=== PATIENT | male | born 1995 | race American Indian/Alaskan Native ===

== ENCOUNTER 2018-11-17 12:11 | Emergency (ER) | payer SELFPAY ==
--- NOTE | 2018-11-17 12:39 | Emergency Department Report ---
Blank Doc - Documentation Documentation: This is a 23-year-old male that presents with right lower abdominal pain. Denies any vomiting or nausea. denies any radiation. This initial assessment/diagnostic orders/clinical plan/treatment(s) is/are subject to change based on patient's health status, clinical progression and re- assessment by fellow clinical providers in the ED. Further treatment and workup at subsequent clinical providers discretion. Patient/guardians urged not to elope from the ED as their condition may be serious if not clinically assessed and managed. Initial orders include: 1- Patient sent to [facility] for further evaluation and treatment 2- labs
[2018-11-17 12:40] VITALS: BP 125/54
[2018-11-17] MEDS ORDERED: TORADOL IV ONE (13:09)
[2018-11-17] MEDS ORDERED: TORADOL IM ONE (13:18)
[2018-11-17 13:24] LABS: Basophils % (Auto) 0.4 % (0.0-1.8); Eosinophils % (Auto) 0.6 % (0.0-4.3); Hematocrit 41.7 % (35.5-45.6); Hemoglobin 14.1 gm/dl (11.8-15.2); Lymphocytes # (Auto) 1.5 K/mm3 (1.2-5.4); Lymphocytes % (Auto) 44.4 % (13.4-35.0); Mean Corpuscular HGB Conc 34 % (32-34); Mean Corpuscular Volume 90 fl (84-94); Monocytes # (Auto) 0.3 K/mm3 (0.0-0.8); Monocytes % (Auto) 8.2 % (0.0-7.3); Platelet Count 196 K/mm3 (140-440); Red Blood Count 4.64 M/mm3 (3.65-5.03); Red Cell Distribution Width 13.5 % (13.2-15.2)
[2018-11-17 13:40] LABS: Alanine Aminotransferase 10 units/L (7-56); Albumin 4.3 g/dL (3.9-5); BUN/Creatinine Ratio 6; Blood Urea Nitrogen 5 mg/dL (9-20); Calcium 9.1 mg/dL (8.4-10.2); Hemolysis Index 4
--- NOTE | 2018-11-17 15:43 | Cat Scan Report ---
CT ABDOMEN AND PELVIS WITH CONTRAST HISTORY: RLQ pain. COMPARISON: None. TECHNIQUE: CT images of the abdomen and pelvis were obtained following administration of intravenous contrast. All CT scans at this location are performed using CT dose reduction for ALARA by means of automated exposure control. CONTRAST: 100 ml of intravenous contrast administered. FINDINGS: Lungs/bones: Normal Abdomen/pelvis: The liver, biliary system, pancreas, spleen, kidneys and renal collecting systems, a drenal glands, aorta, bowel loops, appendix and bladder are unremarkable. There is trace free pelvic fluid which is of uncertain significance. No free air or bulky adenopathy. IMPRESSION: Trace free pelvic fluid of uncertain etiology. The appendix is normal. No inflammatory process in the right lower quadrant is identified. Signer Name: Jaime Lai Jr, MD Signed: 11/17/2018 3:39 PM Workstation Name: [id number]
--- NOTE | 2018-11-17 16:28 | Emergency Department Report ---
ED Abdominal Pain HPI - General Chief Complaint: Abdominal Pain Stated Complaint: LOWER ABD PAIN Time Seen by Provider: 11/17/18 12:38 Source: patient Mode of arrival: Ambulatory Limitations: No Limitations - History of Present Illness Initial Comments: Patient is a 23-year-old male was presented with right lower quadrant pain. Pain is been present for the last 4 days. Patient states is been no nausea vomiting diarrhea fevers or chills. Does have pain with deep palpation and with movement. Patient denies any trauma. Patient states he went to [facility] yesterday and had an ultrasound of his scrotum and ultrasound of his kidneys done which were negative. Patient states he was not prescribed any medications. Patient states pain has persisted and he came here for second opinion. Severity scale (0 -10): 6 - Related Data Previous Rx's Medication Instructions Recorded Last Taken Type Ibuprofen [Motrin 800 MG tab] 800 mg PO Q8HR PRN #10 tablet 11/17/18 Unknown Rx methOCARBAMOL [Robaxin TAB] 500 mg PO Q6H PRN #14 tablet 11/17/18 Unknown Rx traMADol [Ultram] 50 mg PO Q6HR PRN #12 tablet 11/17/18 Unknown Rx Allergies Allergy/AdvReac Type Severity Reaction Status Date / Time No Known Allergies Allergy Unverified 11/17/18 12:22 ED Review of Systems ROS: Stated complaint: LOWER ABD PAIN Other details as noted in HPI Comment: All other systems reviewed and negative ED Past Medical Hx - Past Medical History Previous Medical History?: No - Surgical History Past Surgical History?: No - Social History Smoking Status: Never Smoker Substance Use Type: None - Medications Home Medications: Home Medications Medication Instructions Recorded Confirmed Last Taken Type Ibuprofen [Motrin 800 MG tab] 800 mg PO Q8HR PRN #10 tablet 11/17/18 Unknown Rx methOCARBAMOL [Robaxin TAB] 500 mg PO Q6H PRN #14 tablet 11/17/18 Unknown Rx traMADol [Ultram] 50 mg PO Q6HR PRN #12 tablet 11/17/18 Unknown Rx ED Physical Exam - General Limitations: No Limitations General appearance: alert, in no apparent distress - Head Head exam: Present: atraumatic, normocephalic - Eye Eye exam: Present: normal appearance - ENT ENT exam: Present: mucous membranes moist - Neck Neck exam: Present: normal inspection - Respiratory Respiratory exam: Present: normal lung sounds bilaterally. Absent: respiratory distress, wheezes, rales, rhonchi - Cardiovascular Cardiovascular Exam: Present: regular rate, normal rhythm, normal heart sounds. Absent: systolic murmur, diastolic murmur, rubs, gallop - GI/Abdominal GI/Abdominal exam: Present: soft, tenderness (RLQ qith deep palpation), normal bowel sounds. Absent: distended, guarding, rebound, rigid - Rectal Rectal exam: Present: deferred - Extremities Exam Extremities exam: Present: normal inspection - Back Exam Back exam: Present: normal inspection - Neurological Exam Neurological exam: Present: alert, oriented X3 - Psychiatric Psychiatric exam: Present: normal affect, normal mood - Skin Skin exam: Present: warm, dry, intact, normal color. Absent: rash ED Course Vital Signs 11/17/18 11/17/18 11/17/18 12:38 12:53 13:20 Temperature 98.4 F Pulse Rate 60 Respiratory 18 16 16 Rate Blood Pressure 125/54 O2 Sat by Pulse 98 Oximetry ED Medical Decision Making - Lab Data Result diagrams: 11/17/18 12:58 11/17/18 12:58 - Radiology Data [facility] [address] [place] [id number] Cat Scan Report Signed Patient: LUIS MIGUEL WHITE MR#: [id number] : 1995 Acct:[id number] Age/Sex: 23 / M ADM Date: 11/17/18 Loc: ED Attending Dr: Ordering Physician: GIO HARPER MD Date of Service: 11/17/18 Procedure(s): CT abdomen pelvis w con Accession Number(s): [id number] cc: GIO HARPER MD CT ABDOMEN AND PELVIS WITH CONTRAST HISTORY: RLQ pain. COMPARISON: None. TECHNIQUE: CT images of the abdomen and pelvis were obtained following administration of intravenous contrast. All CT scans at this location are performed using CT dose reduction for ALARA by means of automated exposure control. CONTRAST: 100 ml of intravenous contrast administered. FINDINGS: Lungs/bones: Normal Abdomen/pelvis: The liver, biliary system, pancreas, spleen, kidneys and renal collecting systems, adrenal glands, aorta, bowel loops, appendix and bladder are unremarkable. There is trace free pelvic fluid which is of uncertain significance. No free air or bulky adenopathy. IMPRESSION: Trace free pelvic fluid of uncertain etiology. The appendix is normal. No inflammatory process in the right lower quadrant is identified. Signer Name: Jaime Lai Jr, MD Signed: 11/17/2018 2:39 PM Workstation Name: [id number] Transcribed By: REF Dictated By: MALOU CARRINGTON MD Electronically Authenticated By: MALOU CARRINGTON MD Signed Date/Time: 11/17/18 1439 DD/ 1433 - Medical Decision Making Patient's CT was within normal limits as were his labs. The patient likely was some musculoskeletal abdominal pain. Patient states he doesn't remember doing anything that may have hurt his abdomen. Patient be started on a muscle relaxant and pain meds and be discharged home. Critical care attestation.: If time is entered above; I have spent that time in minutes in the direct care of this critically ill patient, excluding procedure time. ED Disposition Clinical Impression: Abdominal wall pain Disposition: DC-01 TO HOME OR SELFCARE Is pt being admited?: No Does the pt Need Aspirin: No Condition: Stable Instructions: Acute Abdominal Pain (ED) Referrals: GALE REIS MD [Primary Care Provider] - 3-5 Days Time of Disposition: 16:28
== END 2018-11-17 16:36 | disposition home or self-care (01) ==
LOC: ED 12:11
DX: R10.31 Right lower quadrant pain (principal)
CPT/HCPCS: 36415; 74177; 80053; 85025; 96372; 99284; J1885; Q9967

== ENCOUNTER 2019-01-29 16:19 | Emergency (ER) | payer SELFPAY ==
--- NOTE | 2019-01-29 16:44 | Emergency Department Report ---
Blank Doc - Documentation Documentation: 23-year-old male that presents with right inguinal hernia pain. This initial assessment/diagnostic orders/clinical plan/treatment(s) is/are subject to change based on patient's health status, clinical progression and re- assessment by fellow clinical providers in the ED. Further treatment and workup at subsequent clinical providers discretion. Patient/guardians urged not to elope from the ED as their condition may be serious if not clinically assessed and managed. Initial orders include: 1- Patient sent to [facility] for further evaluation and treatment 2- labs
[2019-01-29 16:46] VITALS: BP 123/75
[2019-01-29 17:08] LABS: Basophils % (Auto) 0.5 % (0.0-1.8); Eosinophils % (Auto) 0.4 % (0.0-4.3); Hematocrit 46.4 % (35.5-45.6); Hemoglobin 15.6 gm/dl (11.8-15.2); Lymphocytes # (Auto) 1.9 K/mm3 (1.2-5.4); Lymphocytes % (Auto) 36.4 % (13.4-35.0); Mean Corpuscular HGB Conc 34 % (32-34); Mean Corpuscular Volume 90 fl (84-94); Monocytes # (Auto) 0.4 K/mm3 (0.0-0.8); Monocytes % (Auto) 6.9 % (0.0-7.3); Platelet Count 212 K/mm3 (140-440); Red Blood Count 5.14 M/mm3 (3.65-5.03); Red Cell Distribution Width 12.7 % (13.2-15.2)
[2019-01-29 17:31] LABS: BUN/Creatinine Ratio 9; Blood Urea Nitrogen 8 mg/dL (9-20); Calcium 9.5 mg/dL (8.4-10.2); Hemolysis Index 19
== END 2019-01-29 16:45 | disposition left against medical advice (07) ==
LOC: ED 16:19
DX: K40.90 Unilateral inguinal hernia, without obstruction or gangrene, not specified as recurrent (principal); Z53.21 Procedure and treatment not carried out due to patient leaving prior to being seen by health care provider
CPT/HCPCS: 36415; 80048; 85025